=== PATIENT | female | born 1980 | race Two or more races ===

== ENCOUNTER 2019-04-04 12:22 | Inpatient (IN) | payer OTHER ==
[~2019-04-04] VITALS: Ht 157.5 cm; Wt 83.9 kg
== END 2019-04-14 09:16 | disposition home or self-care (01) | DRG 743 ==
LOC: OB/GYN 04-12 06:27 → O/R 04-12 06:27 → SURG 04-12 07:00 → OB/GYN 04-12 13:19
PROVIDERS: ADMIT Obstetrics & Gynecology
PROC: 0UT50ZZ Resection of Right Fallopian Tube, Open Approach (ICD-10-PCS; 2019-04-12)
PROC: 0UT00ZZ Resection of Right Ovary, Open Approach (ICD-10-PCS; 2019-04-12)
PROC: 0UT90ZZ Resection of Uterus, Open Approach (ICD-10-PCS; principal; 2019-04-12 07:00)
DX: D25.1 Intramural leiomyoma of uterus (principal); D27.0 Benign neoplasm of right ovary; R10.2 Pelvic and perineal pain